=== PATIENT | female | born 1960 | race Caucasian/White ===

== ENCOUNTER → 2019-12-27 | Outpatient (CLI) | payer OTHER ==
[~2019-12-27] MED LIST: ALLO300T PO; ALPR0.254 PO; GABA-585 PO; HYDR12.575 PO; LISI-338 PO; TRAM50TA PO; VITA1TAB19 PO
== END | disposition home or self-care (01) ==
LOC: LAB 11:27
PROVIDERS: ATTEND Orthopaedic Surgery Sports Medicine
DX: Z01.812 Encounter for preprocedural laboratory examination (principal); Z20.828 Contact with and (suspected) exposure to other viral communicable diseases; S82.899A Other fracture of unspecified lower leg, initial encounter for closed fracture; X58.XXXA Exposure to other specified factors, initial encounter; Y93.89 Activity, other specified; Y92.89 Other specified places as the place of occurrence of the external cause; Y99.8 Other external cause status
CPT/HCPCS: U0003-CS

== ENCOUNTER 2019-12-31 06:19 | Day surgery (SDC) | payer OTHER ==
[~2019-12-31] VITALS: Ht 167.6 cm; Wt 74.4 kg
[~2019-12-31 06:19] MED LIST changes: +CLINDAMYCIN 900MG PREMIX 50 ML IV ONE
[2019-12-31] MEDS ORDERED: LIDOCAINE 1% PF 2 ML VIAL. ID PRN (07:00)
[2019-12-31] MEDS ORDERED: HYDROmorphone 2 MG/ML VIAL IV PRN (07:00)
[2019-12-31] MEDS ORDERED: fentaNYL PF VIAL 100 MCG/2 ML VIAL IV PRN ×2 (07:00)
[2019-12-31] MEDS ORDERED: ONDANSETRON PF 4 MG/2 ML VIAL. IV PRN (07:00)
[2019-12-31] MEDS ORDERED: MORPHINE SULFATE 2 MG/ML VIAL. IV PRN (07:00)
[2019-12-31] MEDS ORDERED: IV RINGERS,LACTATED 1000ML 1,000 ML IV SCH (07:00)
[2019-12-31] MEDS ORDERED: PROCHLORPERAZINE 10 MG/2 ML VIAL. IV PRN (07:00)
[2019-12-31] MEDS ORDERED: LIDOCAINE 1% Multi-Dose 20 ML VIAL. ONE (07:17)
[2019-12-31] MEDS ORDERED: BUPIVACAINE MPF 0.5% 30 ML VIAL. ONE (07:17)
[2019-12-31] MEDS ORDERED: LIDOCAINE 2% PF 5 ML VIAL. ONE (07:32)
[2019-12-31] MEDS ORDERED: PROPOFOL 10 MG/ML (20ML) VIAL. IV ONE (07:32)
[2019-12-31] MEDS ORDERED: fentaNYL PF VIAL 100 MCG/2 ML VIAL ONE (07:32)
[2019-12-31] MEDS ORDERED: MIDAZOLAM HCL/PF 2 MG/2 ML VIAL. ONE (07:32)
--- NOTE | 2019-12-31 07:43 | DISCH ---
DISCHARGE INSTRUCTIONS Condition on Discharge Condition on Discharge: Stable Activity After Discharge Activity Instructions for Disc: Other, see below Bathing Instructions: Shower-keep dressing dry Weight Bearing Status after Di: Non weight bearing Diet after Discharge Diet after Discharge: Regular Wound Incision Care Wound/Incision Care: Ice to area for comfort, Keep wound/cast CDI, Keep wound elevated, Do not change dressing Contacting the [facility] after DC Call your doctor for: Concerns you may have Follow-Up Follow up with: Celia in 2 wks Treatment/Equipment after DC Adaptive Equipment Issued: None SHAI BANGURA II, MD Dec 31, 2019 07:43
[2019-12-31] MEDS ORDERED: KETOROLAC 30 MG/ML VIAL. ONE (07:53)
[2019-12-31] MEDS ORDERED: DEXAMETHASONE SOD PHOS 4 MG/ML VIAL ONE (07:53)
[2019-12-31] MEDS ORDERED: SEVOFLURANE 61 TO 120 MINUTES. IH ONE (07:53)
[2019-12-31] MEDS ORDERED: ONDANSETRON PF 4 MG/2 ML VIAL. ONE (07:53)
--- NOTE | 2019-12-31 08:49 | PDOC4 ---
Operative Note Operative Note Date of procedure: 12/31/2019 Surgeon: Ajit Bangura Room Service Attendant: Kraig Kearney Preoperative diagnosis: Closed displaced right ankle bimalleolar fracture Postoperative diagnosis: Same Procedure performed: Open reduction internal fixation right bimalleolar ankle fracture Anesthesia: General Complications: None Blood loss: 10 mL Tourniquet time: Less than an hour Findings: Acute fractures are present, negative external rotation stress test Components inserted: Two 3.0 mm cannulated screws medially, 5 hole right distal fibula locking plate. Reason for procedure: Patient is a very pleasant 59-year-old female who suffered a twisting injury to her ankle sustaining the above fracture pattern. I seen in my outpatient clinic and we discussed the risks, benefits, and alternatives to the above surgery and she wished to proceed. Description of procedure: Patient was greeted in the preoperative area by myself or the correct extremity was verified and marked. She was taken to the operative suite and antibiotics were started as she was brought back. Once in the operating room, she was transferred gently supine to the operating room table and had successful induction of a general anesthetic. We then proceeded to place a nonsterile tourniquet and taped in place to her right thigh. Her splint was taken off and a chlorhexidine pre-scrub was accomplished. After this, the right lower extremity was prepped and draped in the usual sterile fashion and we conducted our standard preoperative timeout. I then palpated marked surface anatomy and kelli lines for my planned incisions medially and laterally. I then incised skin laterally with a scalpel and dissected subcutaneous tissue with electrocautery, identifying the distal fibula and the fracture site. I used a periosteal elevator to expose the distal fibula. I then used a dental pick to pull gentle distraction at the fracture site and debrided the fracture site of its early hematoma and clot with a small curette and metal tip suction device. I then used a pizhf-st-sidro reduction clamp, her bone was quite soft and I applied gentle pressure. Once had the fibular fracture reduced I held my plate against the bone and sized it using C arm to confirm position. I then placed a nonlocking screw to secure the plate to the bone above the fracture site and filled the holes distal to the fracture site with locking screws where they had purchase. After this, I placed 2 more locking screws proximal to the fracture site. I then directed my attention to the medial ankle and made a slightly curvilinear incision centered over the medial malleolus fracture. I dissected subcutaneous tissue with electrocautery and tenotomy's. Identified her fibular fracture and used a dental pick to pull some distraction, irrigating everything out. I then debrided the fracture site, using the dental pick to then perform my reduction. I then placed 2 guidewires and under fluoroscopy guidance, double checking my positions, I traded 1 of the se out. I then measured and drilled for my cannulated screws and placed these under hand power. I then perform a external rotation stress test, there was no talar shift or widening at the syndesmosis. I then took my final images and was satisfied with fracture reduction and hardware position. I then thoroughly irrigated out both incisional areas. We then closed subcutaneous tissue with inverted interrupted 2 oh at the medial incision, fascia was closed with simple interrupted 2 oh laterally followed by inverted interrupted 2-0 Vicryl for subcutaneous tissue. 3-0 nylon in mattress fashion was used for both. Prior to wound closure, all counts correct x2. Local anesthetic was injected in the kiah-incisional soft tissues. Tourniquet had been let down and hemostasis ensured with electrocautery. The ankle and leg were then cleansed and dried and a soft bulky AO splint was applied after a sterile dressing. She was then awakened from anesthesia, she tolerated surgery well. No complications. At the conclusion, she was awakened and transferred gently supine to the recovery room cart and taken to PACU in stable and extubated condition. Postoperative plan is to discharge her home, nonweightbearing, I will see her back in 2 weeks, sooner should a problem arise AJIT BANGURA II, MD Dec 31, 2019 08:49
[2019-12-31 09:20] VITALS: BP 144/66
== END 2019-12-31 10:00 | disposition home or self-care (01) ==
LOC: SURG 06:19
PROVIDERS: ATTEND Orthopaedic Surgery Sports Medicine
DX: S82.841A Displaced bimalleolar fracture of right lower leg, initial encounter for closed fracture (principal); S82.51XA Displaced fracture of medial malleolus of right tibia, initial encounter for closed fracture; X50.1XXA Overexertion from prolonged static or awkward postures, initial encounter; Y93.89 Activity, other specified; Y92.89 Other specified places as the place of occurrence of the external cause; Y99.8 Other external cause status; Z88.0 Allergy status to penicillin; Z79.899 Other long term (current) drug therapy
CPT/HCPCS: 27814; 76000; A7015; C1713; C1887; J1100; J1885; J2250; J2405; J2704; J3010; J3490

== ENCOUNTER → 2020-04-24 | Outpatient (CLI) | payer OTHER ==
[~2020-04-24] MED LIST changes: -CLINDAMYCIN 900MG PREMIX 50 ML IV ONE; +IBUP-1060 PO; -LISI-338 PO; +LISI-517 PO
== END ==
LOC: LAB 09:54
PROVIDERS: ATTEND Orthopaedic Surgery
DX: Z01.812 Encounter for preprocedural laboratory examination (principal); T84.60XA Infection and inflammatory reaction due to internal fixation device of unspecified site, initial encounter; Z88.0 Allergy status to penicillin; Z20.822 Contact with and (suspected) exposure to COVID-19
CPT/HCPCS: U0003

== ENCOUNTER 2020-04-28 08:25 | Day surgery (SDC) | payer OTHER ==
[~2020-04-28 08:25] MED LIST changes: +HYDROmorphone 2 MG/ML VIAL IVP PRN; +IV RINGERS,LACTATED 1000ML 1,000 ML IV SCH; +MORPHINE SULFATE 2 MG/ML VIAL. IVP PRN; +PROCHLORPERAZINE 10 MG/2 ML VIAL. IVP PRN; +fentaNYL PF VIAL 100 MCG/2 ML VIAL IVP PRN
[2020-04-28] MEDS ORDERED: CLINDAMYCIN 900MG PREMIX 50 ML IV ONE (09:00)
[2020-04-28] MEDS ORDERED: BUPIVACAINE-EPI 0.25% 30 ML VIAL KIT. ONE (10:06)
[2020-04-28] MEDS ORDERED: ONDANSETRON PF 4 MG/2 ML VIAL. ONE (10:41)
[2020-04-28] MEDS ORDERED: DEXAMETHASONE SOD PHOS 4 MG/ML VIAL ONE (10:41)
[2020-04-28] MEDS ORDERED: LIDOCAINE 2% PF 5 ML VIAL. ONE (10:41)
[2020-04-28] MEDS ORDERED: PROPOFOL 10 MG/ML (20ML) VIAL. IV ONE (10:41)
[2020-04-28] MEDS ORDERED: fentaNYL PF VIAL 100 MCG/2 ML VIAL ONE ×3 (10:42→12:42)
[2020-04-28] MEDS ORDERED: MIDAZOLAM HCL/PF 2 MG/2 ML VIAL. ONE (10:42)
[2020-04-28] MEDS ORDERED: ePHEDrine PF IN SALINE 50 MG/10 ML SYRINGE. IV ONE (11:11)
[2020-04-28] MEDS ORDERED: SEVOFLURANE 61 TO 120 MINUTES. IH ONE (11:54)
--- NOTE | 2020-04-28 12:04 | PDOC4 ---
Operative Note Operative Note Date of Procedure: April 28, 2020 Pre-Op Diagnosis: 1. Infection or inflammatory reaction due to other internal orthopedic prosthetic devices, implants and grafts, initial encounter T84.7XXA 2. Wound dehiscence - T81.30XA, Right lateral ankle following ORIF Post-Op Diagnosis: same Procedure: CPT 71435 removal of implant deep (e.g., buried wire, pin, screw, nail, lito, or plate) right ankle Surgeon: Gayle Martinez MD Outside Plant Supervisor: MARSHA Shipman Anesthesia: General EBL: 25 mL Specimens Obtained: Swab culture right ankle hardware. Swab culture right ankle fibula bone. Complications: none Drains: none Tourniquet: 35 minutes at 300 mm Hg Indications for Procedure: This 59-year-old had ankle fracture surgery December 31, [address] Yang after an ankle fracture in November. She has been on clindamycin until a few days ago and been doing wound care wet-to-dry dressings. There is still a sinus tract, an open wound, and drainage despite the several month course of antibiotics. Radiographically her fracture appears healed. I suspect that the lateral hardware is infected, and the fracture does appear healed, however the patient also mentioned nickel sensitivity and this could be an allergic reaction or similar inflammatory reaction. Theoretically she could have both infection and metal sensitivity. The patient and I discussed the risks, benefits and alternatives of surgery as well as recommended care for possible hardware infection which could include PICC and 6 weeks of intravenous antibiotics. I recommended hardware removal with intraoperative cultures and treatment based on culture results but I discussed the potential risks of refracture, ongoing infection, bleeding, blood clots, neurovascular injury, or other potential surgical or anesthetic complications. All of her questions were answered and she desired to proceed with surgery. Procedure in Detail: The patient was identified in the preoperative holding area. The correct right ankle was marked by me. The patient was taken to the operating room where general anesthetic was used. The patient was positioned on the operating table. Preoperative antibiotics were held so that accurate intraoperative cultures could be obtained. A timeout procedure was performed. A padded tourniquet was applied to the right calf. The limb was prepared in sterile fashion with Betadine. Sterile drapes were applied. The skin incision was incised along the prior scar laterally, using a 10 blade scalpel. The hardware was easily exposed. Cultures were taken with a swab along the lateral plate. There is no obvious pus. The fracture appears completely healed at this time, although once the plate was removed there was some soft bone beneath the plate at the distal fibula. The screws were removed without difficulty. The plate was removed without difficulty. The screw holes were freshened with a rongeur. Distally I noticed that there was some soft bone at the lateral malleolus, at the metaphsyeal flare of the fibula just above the joint line. I was concerned that if I did aggressive bone irrigation I would create a new fracture and so I did limited bone debridement with the rongeurs. The soft bone at this area could indicate bone infection but no apparent pus could be visualized. I took a deep bone swab culture at this location. The area was treated with Betadine lavage followed by copious saline irrigation. Bovie electrocautery was used for hemostasis. The lateral incision was closed in layers with #2-0 Vicryl in the subcutaneous tissues. The distal lateral skin incision was closed with #3-0 Prolene horizontal mattress sutures. The area of the open wound and macerated skin proximally on the lateral incision was approximated with #0 Prolene trauma suture pattern nearfarfarnear. Outer gloves were changed. The medial incision was reopened sharply with a fresh scalpel. The 2 screws were identified without difficulty and removed with a screwdriver without difficulty. There was no evidence of infection or soft bone medially. There had been no open wound medially. Copious saline irrigation was used. This medial incision was closed with #2-0 Vicryl and with #3-0 Prolene. Local anesthetic with epinephrine was injected into the skin edges. Xeroform was applied over the open wounds and over the incisions, and then sterile dressings were applied. Needle and sponge counts were correct. There were no apparent complications. The tourniquet was released. Antibiotics were dosed at this time. The patient returned to the recovery in stable condition. GAYLE MARTINEZ MD Apr 28, 2020 12:04
[2020-04-28] MEDS ORDERED: oxyCODONE/APAP 5/325 1 TAB TABLET PO ONE (12:45)
[2020-04-28] MEDS ORDERED: PROMETHAZINE 12.5 MG TABLET. PO ONE (12:45)
[2020-04-28] MEDS: fentaNYL PF VIAL 100 MCG/2 ML VIAL IVP PRN ×2 (12:45→13:29)
[2020-04-28 13:25] VITALS: BP 109/50
== END 2020-04-28 14:10 | disposition home or self-care (01) ==
LOC: SURG 08:25
PROVIDERS: ATTEND Orthopaedic Surgery
DX: T84.7XXA Infection and inflammatory reaction due to other internal orthopedic prosthetic devices, implants and grafts, initial encounter (principal); T81.30XA Disruption of wound, unspecified, initial encounter; I10 Essential (primary) hypertension; M19.90 Unspecified osteoarthritis, unspecified site; F32.9 Major depressive disorder, single episode, unspecified; F41.9 Anxiety disorder, unspecified; F17.210 Nicotine dependence, cigarettes, uncomplicated; Z88.0 Allergy status to penicillin; Z88.8 Allergy status to other drugs, medicaments and biological substances; Z79.899 Other long term (current) drug therapy; Z98.51 Tubal ligation status; Z72.89 Other problems related to lifestyle; X58.XXXA Exposure to other specified factors, initial encounter; Y93.89 Activity, other specified; Y92.89 Other specified places as the place of occurrence of the external cause; Y99.8 Other external cause status
CPT/HCPCS: 20680; 87071; 87075; A4461; J1100; J2250; J2405; J2704; J3010; J3490; J7120; Q0169; 87077; 87186